=== PATIENT | male | born 2000 | race Caucasian/White ===

== ENCOUNTER 2019-03-21 12:13 | Emergency (ER) | payer SELFPAY ==
[~2019-03-21] VITALS: Ht 175.3 cm; Wt 93.0 kg
[2019-03-21 12:15] VITALS: BP 143/87
--- NOTE | 2019-03-21 12:15 | NUR ---
PT AMBULATED TO ER BED 09
--- NOTE | 2019-03-21 12:16 | NUR ---
c/o left ankle pain after fall while playing basketball yesterday. PATIENT STATES PAIN OF 8/10 AT THIS TIME. PATIENT POSITIONED FOR COMFORT; HOB ELEVATED; BEDRAILS UP X1; BED DOWN. ER MD MADE AWARE OF PT STATUS.
--- NOTE | 2019-03-21 12:18 | NUR ---
Patient being evaluated by Dr. Guadarrama at bedside.
--- NOTE | 2019-03-21 12:27 | NUR ---
X RAY AT BEDSIDE
--- NOTE | 2019-03-21 12:59 | NUR ---
APPLIED JOSIE WRAP TO LEFT ANKLE WITHOUT ANY ISSUES
[2019-03-21 13:05] VITALS: BP 123/78
--- NOTE | 2019-03-21 13:05 | NUR ---
Patient discharged with v/s stable. Written and verbal after care instructions given and explained. Patient alert, oriented and verbalized understanding of instructions. Ambulatory with WITH CRUTCHES. All questions addressed prior to discharge. ID band removed. Patient advised to follow up with PMD. Rx of NAPROSYN given. Patient educated on indication of medication including possible reaction and side effects. Opportunity to ask questions provided and answered.
== END 2019-03-21 13:05 | disposition home or self-care (01) ==
LOC: MED 12:13
DX: S93.402A Sprain of unspecified ligament of left ankle, initial encounter (principal); X58.XXXA Exposure to other specified factors, initial encounter; Y93.67 Activity, basketball; Y92.39 Other specified sports and athletic area as the place of occurrence of the external cause; Y99.8 Other external cause status
CPT/HCPCS: 73610; 99283